=== PATIENT | female | born 1950 | race Asian ===

== ENCOUNTER 2019-05-27 13:32 | Emergency (ER) | payer MEDICARE, SELFPAY ==
[2019-05-27 13:33] VITALS: BP 161/79; PULSE 94; RESP 17; TEMP 36.2; O2SAT 99
--- NOTE | 2019-05-27 13:47 | ED.VIS.LOWEX ---
History of Present Illness Chief Complaint: Lower Extremity Injury Detail of Chief Complaint: Left ankle injury Informant: Patient Occurred: Today Mechanism/Context: Fall Onset: Today Quality of Pain: Aching, Throbbing Current Severity: Moderate Maximum Severity: Moderate Associated Symptoms: Negative for: Parasthesia Narrative: Patient reports twisting her ankle going up some steps approximate hour ago and falling. She has pain to the lateral portion of the left ankle. She is able to put a small amount of weight on her foot. She denies any other injury from the fall. - Past Medical History (1) High cholesterol Status: Acute (2) Hypothyroidism Status: Acute Past Medical History - Allergies and Home Meds Allergies/Adverse Reactions: Allergies No Known Allergies Allergy (Verified 05/27/19 13:35) Primary Care Physician: NOT,DEFINED [NON-STAFF] - Prior records reviewed: Yes Past Medical History: - - Reviewed Smoking Status: Unknown if ever smoked Review of Systems General: Denies: Chills, Fever Cardiovascular: Denies: Chest pain Respiratory: Denies: Dyspnea Gastrointestinal: Denies: Abdominal pain Musculoskeletal: Reports: Arthralgias. Denies: Neck pain, Back pain Neurological: Denies: Headache, Parasthesia, Numbness Physical Exam Vital Signs/Narrative: Vital Signs Temp Pulse Resp BP Pulse Ox 05/27/19 13:33 97.2 F L 94 17 161/79 H 99 Inital Vital Signs reviewed: Yes - Extremity Exam Left Ankle: - - Tenderness to palpation with edema over the lateral malleolus of the left ankle. There is early ecchymosis onto the proximal anterolateral foot. No tenderness over the metatarsals. She has strong distal pulses. There is no tenderness of the proximal fibula. No tenderness at the left hip. Head: Normocephalic ENT: No Trauma Neck: Nontender Cardiovascular: Regular rate, Regular rhythm Respiratory: No distress, CTA bilaterally Abdomen: Soft, Nontender Back: Nontender Neurological: Alert, Oriented x3 Psychological: Normal affect Diagnostic/Tx/Re-eval Left ankle x-rays were obtained and reviewed by myself. No evidence of lateral malleolar fracture. She appears to have chronic changes along the medial malleolus as well as over the posterior superior olecranon. These areas are nontender. - Medical Decision Making Patient presents after rolling her ankle on some steps. She has lateral malleolar swelling. No evidence of acute fracture. She was placed in air splint. She declines crutches. She is able to ambulate as tolerated. ED Disposition - Plan for ED Patient: Disposition: Home or Assisted Living Diagnosis: Left ankle sprain Instructions: Sprain, Ankle, with X-Ray Prescriptions: Naproxen [Naprosyn] 500 mg PO BID PRN #20 tablet Referrals: Fátima Walters MD [Primary Care Provider] - 1 Week if not improving
[2019-05-27] MEDS: Naproxen 500 MG Tablet PO (13:54)
--- NOTE | 2019-05-27 15:32 | RAD_ITS ---
STUDY: X-RAY - LEFT ANKLE REASON FOR EXAM: Female, 68 years old. Fall down steps. Anterior ankle pain. TECHNIQUE: 3 view(s) of the ankle. COMPARISON: None. FINDINGS: Generalized osteopenia. Normal visualized distal tibia and fibula. Normal medial and lateral malleoli. Normal tibiotalar articulation and ankle mortise. Superior and inferior calcaneal spurs. The visualized subtalar, talonavicular, calcaneocuboid and tarsal articulations are normal. Anterior soft tissue swelling. RAD/Ankle min 3 Views IMPRESSION: Osteopenia with soft tissue swelling and calcaneal spurs. No acute finding. Electronically Signed: Rony Ceron MD at 16:12 EDT , Service support ,
== END 2019-05-27 16:06 | disposition home or self-care (01) ==
PROVIDERS: Emergency Provider Emergency Medicine; Family Provider Internal Medicine; PCP Internal Medicine
DX: S93.402A Sprain of unspecified ligament of left ankle, initial encounter (principal); W10.9XXA Fall (on) (from) unspecified stairs and steps, initial encounter; Y93.9 Activity, unspecified; Y92.9 Unspecified place or not applicable; E78.00 Pure hypercholesterolemia, unspecified; E03.9 Hypothyroidism, unspecified; Z79.899 Other long term (current) drug therapy
CPT/HCPCS: 73610; 99283